=== PATIENT | male | born 1995 | race Caucasian/White ===

== ENCOUNTER 2016-10-18 23:18 | Emergency (ER) | payer OTHER ==
[~2016-10-18] VITALS: Ht 177.8 cm; Wt 91.8 kg
[2016-10-18 23:27] VITALS: TEMP 36.7; Ht 177.8 cm; Wt 91.8 kg
[2016-10-18] MEDS ORDERED: DiphenhydrAMINE HCL 50 MG/ML VIAL IV STA (23:38)
[2016-10-18] MEDS ORDERED: GI COCKTAIL PO STA (23:38)
[2016-10-18] MEDS ORDERED: SODIUM CHLORIDE 0.9% 1000ML 1,000 ML IV STA (23:38)
[2016-10-18] MEDS ORDERED: ALBUT/IPRATROP 3MG/0.5MG NEB 3 ML VIAL INH STA (23:38)
--- NOTE | 2016-10-18 23:42 | EMERGENCY ROOM VISIT NOTE ---
History Report prepared by Baltazaribjanes: Oskar Chow Under the Supervision of: Dr. Sai Meadows M.D. First contact with patient: 23:32 Chief Complaint: ALLERGIC REACTION Stated Complaint: ALLERGIC REACTION History of Present Illness The patient is a 21 year old male who presents to the Emergency Room with complaints of an acute allergic reaction that started just prior to arrival. The patient developed a scratchy throat as well as throat and chest tightness after eating scallops for dinner. He has not noticed any rashes. He had wine with the dinner and denies any history of sulfate allergies. He does not normally have reactions to shellfish. The patient had one tablet of Benadryl [employer]. He has a history of asthma. He is an undergraduate student but does not believe he had any unusual chemical exposure. Source of History: patient Onset: [employer] Position: other (global) Quality: other (allergic reaction) Timing: other (acute) Associated Symptoms: + chest pain (tightness), + sorethroat, No rash Review of Systems See HPI for pertinent positives & negatives. A total of 10 systems reviewed and were otherwise negative. Past Medical & Surgical Medical Problems: (1) Asthma Family History No pertinent family history Social History Smoking Status: Never Smoker Alcohol Use: occasionally Marital Status: in relationship Occupation Status: [employer] student Allergies Coded Allergies: Shellfish (Verified Allergy, Unknown, SHORTNESS OF BREATH, 10/18/16) Physical Exam Vital Signs Date Time Temp Pulse Resp B/P Pulse Ox O2 Delivery O2 Flow Rate FiO2 10/19/16 01:00 94 18 133/82 98 10/18/16 23:27 36.7 87 20 139/86 97 Room Air Physical Exam GENERAL: Patient is mildly anxious appearing and in minimal distress. HEENT: No acute trauma, normocephalic atraumatic, mucous membranes moist, no nasal congestion, no scleral icterus. Posterior oropharyngeal erythema. NECK: No stridor, no adenopathy, no meningismus, trachea is midline. LUNGS: No dyspnea. Faint wheezing bilateral lower bases. HEART: Regular rate and rhythm. No murmurs, rubs, gallops appreciated. ABDOMEN: Soft, nontender, bowel sounds positive, no masses appreciated, no peritonitis. BACK: No midline tenderness, no CVA tenderness EXTREMITIES: Normal motion all extremities, no cyanosis, no edema. NEUROLOGIC: Alert and oriented, no acute motor or sensory deficits, no focal weakness, cranial nerves grossly intact. SKIN: No rash, no jaundice, no diaphoresis. Medical Decision & Procedures Medications Administered Medications (Trade) Dose Ordered Sig/Ana Maria Route Start Time Stop Time Status Last Admin Dose Admin Diphenhydramine HCl (Benadryl Inj) 50 mg NOW STAT IV 10/18/16 23:38 10/18/16 23:40 DC 10/18/16 23:53 50 MG Dexamethasone Sodium Phosphate 10 mg 10 mg NOW ONCE IV 10/18/16 23:45 10/18/16 23:46 DC 10/18/16 23:53 10 MG Sodium Chloride (Nss 1000ml) 1,000 ml @ 999 mls/hr Q1H1M STAT IV 10/18/16 23:38 10/19/16 00:38 DC 10/18/16 23:52 999 MLS/HR Albuterol/ Ipratropium (Duoneb) 3 ml NOW STAT INH 10/18/16 23:38 10/18/16 23:40 DC 10/18/16 23:52 3 ML Al Hydroxide/Mg Hydroxide (Maalox Susp) 30 ml STK-MED ONCE .ROUTE 10/18/16 23:47 10/18/16 23:48 DC 10/18/16 23:52 30 ML Lidocaine HCl (Viscous Lidocaine 2% Soln) 20 ml STK-MED ONCE .ROUTE 10/18/16 23:47 10/18/16 23:48 DC 10/18/16 23:52 10 ML ED Course 2332: The patient was evaluated in room A12b. A complete history and physical exam was performed. 2338: GI Cocktail 24 ml PO, DuoNeb 3 ml INH, NSS 1000 ml @ 999 mls/hr, Benadryl 50 mg IV. 2345: Decadron 10 mg IV. 0050: The patient is feeling much better and would like to go home. He has an inhaler at home and will take Benadryl if he has further symptoms. I discussed the pros and cons of steroids with him and he decided to hold off on them for now. Medical Decision Differential: Allergic Reaction, Urticaria, Anaphylaxis, Phipps-Cecil Syndrome, Toxic Epidermal Necrolysis, Erythema Multiforme, Cellulitis, amongst other etiologies entertained. 21 yr old male with allergic reaction of scratchy throat and mild wheezing after eating garlic/butter sauteed scallops. Not anaphylactic and looks well otherwise. Very faint wheezing noted thus albuterol. Does have history of asthma thus unclear if allergic related or just asthma as cause of wheeze. Looks well otherwise. After neb, benadryl, decadron, gi cocktail completely resolved symptoms. As food related and mild symptoms will hold on steroid Rx. Has albuterol and benadryl at home for prn. Discussed symptoms requiring return. Impression Primary Impression: Allergic reaction Scribe Attestation The scribe's documentation has been prepared under my direction and personally reviewed by me in its entirety. I confirm that the note above accurately reflects all work, treatment, procedures, and medical decision making performed by me. Departure Information Dispostion Home / Self-Care Referrals [facility] Forms HOME CARE DOCUMENTATION FORM, IMPORTANT VISIT INFORMATION Patient Instructions ED Allergic React Food, My [facility] Problem Qualifiers Primary Impression: Allergic reaction Encounter type: initial encounter Qualified Codes: T78.40XA - Allergy, unspecified, initial encounter
[2016-10-18] MEDS ORDERED: DEXAMETHASONE SOD INJ 10 MG/ML VIAL IV ONE (23:45)
[2016-10-18] MEDS ORDERED: LIDOCAINE HCL 2% VISC SOLN 20 ML UDC ONE (23:47)
[2016-10-18] MEDS ORDERED: ALUMINUM/MAGNESIUM SUSP 30 ML UDC ONE (23:47)
[2016-10-19 01:00] VITALS: BP 133/82; PULSE 94; O2SAT 98
== END 2016-10-19 01:01 | disposition home or self-care (01) ==
LOC: C.EDB 23:20 → C.EDA 10-19 01:01
DX: T78.40XA Allergy, unspecified, initial encounter (principal); X58.XXXA Exposure to other specified factors, initial encounter; J45.909 Unspecified asthma, uncomplicated; Z91.018 Allergy to other foods